=== PATIENT | female | born 1995 | race Caucasian/White ===

== ENCOUNTER 2017-01-17 19:14 | Emergency (ER) | payer OTHER ==
[2017-01-17 19:23] VITALS: BP 113/75; PULSE 86; RESP 14; TEMP 98.2; O2SAT 97
[2017-01-17] MEDS ORDERED: CEPHALEXIN 500 MG CAP PO ONE (19:38)
--- NOTE | 2017-01-17 19:42 | EDPHY ---
H & P Stated Complaint: low back pain, painful urination Time Seen by Provider: 01/17/17 19:29 HPI/ROS: CHIEF COMPLAINT: Dysuria HISTORY OF PRESENT ILLNESS: The patient is a 21-year-old female who comes to the emergency department complaining of dysuria and flank pain for the last week. She was seen initially in [place] and treated with 3 day course of ciprofloxacin want help for couple of days but then her symptoms returned. She has not had a fever. No nausea vomiting. No diarrhea. She denies risk of . No bleeding. REVIEW OF SYSTEMS: Constitutional: denies: chills, fever, recent illness, recent injury EENTM: denies: blurred vision, double vision, nose congestion Respiratory: denies: cough, shortness of breath Cardiac: denies: chest pain, irregular heart rate, lightheadedness, palpitations Gastrointestinal/Abdominal: denies: abdominal pain, diarrhea, nausea, vomiting, blood streaked stools Genitourinary: See HPI Musculoskeletal: denies: joint pain, muscle pain Skin: denies: lesions, rash, jaundice, bruising Neurological: denies: headache, numbness, paresthesia, tingling, dizziness, weakness Hematologic/Lymphatic: denies: blood clots, easy bleeding, easy bruising Immunologic/allergic: denies: HIV/AIDS, transplant EXAM: GENERAL: Well-appearing, well-nourished and in no acute distress. HEAD: Atraumatic, normocephalic. EYES: Pupils equal round and reactive to light, extraocular movements intact, sclera anicteric, conjunctiva are normal. ENT: TMs normal, nares patent, oropharynx clear without exudates. Moist mucous membranes. NECK: Normal range of motion, supple without lymphadenopathy or JVD. LUNGS: Breath sounds clear to auscultation bilaterally and equal. No wheezes rales or rhonchi. HEART: Regular rate and rhythm without murmurs, rubs or gallops. ABDOMEN: Soft, nontender, normoactive bowel sounds. No guarding, no rebound. No masses appreciated. BACK: No CVA tenderness, no spinal tenderness, step-offs or deformities EXTREMITIES: Normal range of motion, no pitting or edema. No clubbing or cyanosis. NEUROLOGICAL: Cranial nerves II through XII grossly intact. Normal speech, normal gait. 5/5 strength, normal movement in all extremities, normal sensation PSYCH: Normal mood, normal affect. SKIN: Warm, dry, normal turgor, no visible rashes or lesions. Source: Patient Exam Limitations: No limitations - Personal History LMP (Females 10-55): 15-21 Days Ago Current Tetanus/Diphtheria Vaccine: Yes - Medical/Surgical History Hx Asthma: No Hx Chronic Respiratory Disease: No Hx Diabetes: No Hx Cardiac Disease: No Hx Renal Disease: No Hx Cirrhosis: No Hx Alcoholism: No Hx HIV/AIDS: No Hx Splenectomy or Spleen Trauma: No Other PMH: PMHx: UTIs as child, hypothyroidism. PSHx: denies - Family History Significant Family History: No pertinent family hx - Social History Smoking Status: Never smoked Alcohol Use: Sober Drug Use: None Constitutional: Initial Vital Signs Temperature (C) 36.8 C 01/17/17 19:18 Heart Rate 86 01/17/17 19:18 Respiratory Rate 14 01/17/17 19:18 Blood Pressure 113/75 01/17/17 19:18 O2 Sat (%) 97 01/17/17 19:18 O2 Delivery Mode Room Air Allergies/Adverse Reactions: Penicillins Allergy (Verified 01/17/17 19:17) Sulfa (Sulfonamide Antibiotics) Allergy (Verified 01/17/17 19:17) Home Medications: Medication Instructions Recorded Control 01/17/17 Cephalexin [Keflex] 500 mg PO TID #21 cap 01/17/17 Levoxyl 01/17/17 Medical Decision Making ED Course/Re-evaluation: Patient has symptoms consistent with the urinary tract infection. I will start her on Keflex. We discussed the resistance to Cipro this area. She is happy with this and declines any further workup or testing. She declines pain medication. Her urinalysis is not impressive likely because she is partially treated. Symptoms are consistent with urinary tract infection. Differential Diagnosis: Partial list of the Differential diagnosis considered include but were not limited to; urinary tract infection, pyelonephritis and although unlikely based on the history and physical exam, I also considered sepsis, , ectopic. I discussed these differential diagnoses and the plan with the patient as well as the usual and expected course. The patient understands that the diagnosis is provisional and that in medicine we are not always correct and that further workup is often warranted. Usual and customary warnings were given. All of the patient's questions were answered. The patient was instructed to return to the emergency department should the symptoms at all worsen or return, otherwise to followup with the physician as we discussed. - Data Points Laboratory Results: 01/17/17 20:00 Urine Color YELLOW Urine Appearance MODERATELY TURBID Urine pH 7.0 (5.0-7.5) Ur Specific [place] 1.021 (1.002-1.030) Urine Protein NEGATIVE (NEGATIVE) Urine Ketones NEGATIVE (NEGATIVE) Urine Blood NEGATIVE (NEGATIVE) Urine Nitrate NEGATIVE (NEGATIVE) Urine Bilirubin NEGATIVE (NEGATIVE) Urine Urobilinogen NEGATIVE EU EU (0.2-1.0) Ur Leukocyte Esterase 2+ H (NEGATIVE) Urine RBC 10-15 /hpf H /hpf (0-3) Urine WBC 50-182 /hpf H /hpf (0-3) Ur Epithelial Cells TRACE /lpf /lpf (NONE-1+) Urine Glucose NEGATIVE (NEGATIVE) Medications Given: Discontinued Medications Cephalexin HCl (Keflex) 500 mg PO EDNOW ONE PRN Reason: Protocol Stop: 01/17/17 19:39 Last Admin: 01/17/17 20:03 Dose: 500 mg Departure - Departure Disposition: Home, Routine, Self-Care Clinical Impression: Urinary tract infection Qualifiers: Urinary tract infection type: acute cystitis Hematuria presence: without hematuria Qualified Code(s): N30.00 - Acute cystitis without hematuria Condition: Fair Instructions: Urinary Tract Infection in Women (ED) Referrals: Jolene Harvey MD [Medical Doctor] - As per Instructions Prescriptions: Cephalexin [Keflex] 500 mg PO TID #21 cap
[2017-01-17 20:18] LABS: COLOR YELLOW; LEUKOCYTE ESTERASE,URINE 2+ (NEGATIVE); NITRITE,URINE NEGATIVE (NEGATIVE)
[2017-01-17 20:27] LABS: WBC,URINE 50-182 /hpf (0-3)
== END 2017-01-17 20:34 | disposition home or self-care (01) ==
DX: N30.00 Acute cystitis without hematuria (principal); B95.7 Other staphylococcus as the cause of diseases classified elsewhere